=== PATIENT | female | born 1965 | race Caucasian/White ===

== ENCOUNTER 2019-10-24 12:21 | Outpatient (CLI) | payer OTHER, SELFPAY ==
--- NOTE | 2019-10-28 23:19 | WPDPFTINT ---
PFT Interpretation PFT Interpretation: DOS: 10/24/2019 REQUESTING: Marvin Santos PA-C REASON FOR TESTING: Cough, shortness of breath PULMONARY FUNCTION TESTS Spirometry: Normal FEV1, 99%. Normal FVC. Normal FEV1%, 77% predicted. No bronchodilator was given. Lung volumes: normal total lung capacity, normal residual volume, mild increase in airway resistance 153%. Diffusion: DLCO is normal 80%. Flow volume loop: Normal. IMPRESSION: Normal spirometry lung volumes and diffusion. Normal flow volume loop. Minimally elevated airway resistance which may be clinically significant. No bronchodilator was given. Maricarmen Painting MD
== END 2019-10-24 12:22 | disposition home or self-care (01) ==
PROVIDERS: PCP Internal Medicine; Visit Provider Physician Assistant
DX: R05 Cough (principal); R06.02 Shortness of breath
CPT/HCPCS: 94375; 94726; 94729

== ENCOUNTER 2019-10-30 08:09 | Outpatient (CLI) | payer OTHER, SELFPAY ==
--- NOTE | 2019-11-06 01:57 | SLEEP_ITS ---
Split Night Sleep Study DATE OF STUDY: 10/30/2019 REASON FOR THIS STUDY: Obstructive sleep apnea syndrome. HISTORY: This patient is a 54-year-old female, 66 inches tall, weighing 197 pounds with a body mass index of 31.8. She has horrible snoring, gasps for air at night, and her breathing scares her family. They stay awake because they are worried about her while sleeping. She never wakes up feeling refreshed. She previously had a home study, but she could not tolerate the mask or the machine. This problem happens every night. All of her siblings use CPAP. She occasionally gasps for breath at night and constantly is told by others that her breathing is abnormal at night. She rarely sweats excessively at night. She does not notice her heart pounding irregularly at night. She occasionally falls asleep during the day, occasionally involuntarily, but never while driving. She does fall asleep occasionally while as a passenger. She does not lose muscle tone with strong emotion. She does not have daytime difficulty due to excessive sleepiness. She does not feel paralyzed on waking or falling asleep. She frequently has vivid dreamlike scenes upon awakening or falling asleep. She is never afraid to go to sleep. She rarely has nightmares. She occasionally remembers her dreams. She frequently has racing thoughts. She rarely feels sad or depressed. Occasionally, she feels anxious. She rarely has muscular tension. She rarely notices parts of her body jerking. She occasionally kicks at night. She rarely has crawling and aching feelings in her legs. She occasionally has leg pain at night. There is no morning jaw pain and she does not grind her teeth. She is not bothered by pain during the day nor at night. She rarely wakes up feeling stiff in the morning. She does not wake up with sore achy muscles or spine pain. She has fatigue, memory problems, takes antacids. Normal bedtime is 10 p.m., falling asleep in less than 5 minutes, waking once at night for 5 minutes or less and will go to the bathroom. At times, she will turn on the television and then fall asleep again. She wakes up at 6:30 in the morning. She does wake up gasping for air, as her tells her to turn over. 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 She does take naps. A short nap may be refreshing. She is drowsy in the morning for an hour or longer. She feels better in the evening than the rest of the day. MEDICAL COMORBIDITIES: 1. Hypertension. 2. Gastroesophageal reflux disease. 3. Asthma. 4. Seasonal allergies. MEDICATIONS: 1. Flonase 2 sprays each nostril daily p.r.n. 2. Protonix 40 mg a day. 3. Triamterene/hydrochlorothiazide 37.5/25 one capsule daily as needed for edema. 4. Coreg 12.5 mg 1 b.i.d. 5. Alprazolam 0.5 mg p.r.n. anxiety. 6. ProAir HFA 90 mcg per puff to use p.r.n. shortness of breath. HABITS: Never smoked tobacco. Caffeine, 1 tea and 3 coffees daily. Alcohol occasionally. No recreational drugs. DESCRIPTION OF THE STUDY: On the [place] Sleepiness Scale, her score is 12. This was conducted as a split night nocturnal polysomnogram using the [employer] multiple channel system including EOG, EEG, submental EMG, EKG, nasal and oral airflow using thermistors and nasal pressure sensors, chest and abdominal belts, body position data, pulse oximetry, and video monitoring. The study was scored using [facility] guidelines. The duration of the diagnostic portion was 156 minutes. The sleep time was 139.5 minutes. Sleep efficiency was 89.1%. Sleep latency was 3.4 minutes, very short, consistent with hypersomnolence. REM latency was 134 minutes, prolonged. There were 10 awakenings and she spent 13.7 min
== END 2019-10-30 08:10 | disposition home or self-care (01) ==
LOC: ANHCSM 08:10
PROVIDERS: PCP Internal Medicine; Visit Provider Internal Medicine
DX: G47.33 Obstructive sleep apnea (adult) (pediatric) (principal)
CPT/HCPCS: 95811

== ENCOUNTER 2019-11-14 10:40 | Outpatient (CLI) | payer OTHER, SELFPAY ==
--- NOTE | ~2019-11-14 | XR_ITS ---
EXAMINATION: XR chest 2V EXAM DATE: 11/14/2019 11:03 INDICATION: Cough, wheezing. Hypertension. TECHNIQUE: Frontal and lateral projections of the chest obtained and reviewed. Comparison is made to prior examination from 01/27/2016. FINDINGS: The lungs are clear. There are no pleural effusions. The cardiomediastinal silhouette is within normal limits. There is no pneumothorax suspected. The bones and soft tissues are unremarkab le. IMPRESSION: Unremarkable chest x-ray exam. Reviewed, dictated and finalized at location A. TION MANAGER
== END 2019-11-14 10:41 | disposition home or self-care (01) ==
PROVIDERS: PCP Internal Medicine; Visit Provider Internal Medicine Critical Care Medicine
DX: R06.02 Shortness of breath (principal); R05 Cough; J45.909 Unspecified asthma, uncomplicated; I10 Essential (primary) hypertension; G47.30 Sleep apnea, unspecified
CPT/HCPCS: 71046

== ENCOUNTER 2021-02-04 10:52 | Outpatient (RCR) | payer OTHER, SELFPAY ==
[2021-02-04 11:10] VITALS: BMI 38.5
== END 2021-04-20 09:25 | disposition home or self-care (01) ==
LOC: ANHDMC 10:52
PROVIDERS: PCP Internal Medicine; Visit Provider Internal Medicine
DX: R73.9 Hyperglycemia, unspecified (principal); E78.00 Pure hypercholesterolemia, unspecified; Z71.3 Dietary counseling and surveillance
CPT/HCPCS: 97802

== ENCOUNTER 2021-04-08 11:53 | Inpatient (IN) | payer OTHER, SELFPAY ==
[2021-04-08] VITALS (19 sets, daily range): BP systolic 111–152; BP diastolic 67–100; PULSE 76–106; RESP 13–28; TEMP 36.6–36.8; O2SAT 94–100; BMI 38.0
--- NOTE | ~2021-04-08 | XR_ITS ---
EXAMINATION: XR chest 2V EXAM DATE: 04/08/2021 12:06 INDICATION: Midsternal chest pain for 3 days. TECHNIQUE: Frontal and lateral projections of the chest obtained and reviewed. Comparison is made to prior examination from 11/14/2019. FINDINGS: The lungs are clear. There are no pleural effusions. The cardiomediastinal silhouette is within normal limits. There is no pneumothorax suspected. The bones and soft tissues are unremarkab le. IMPRESSION: No acute cardiopulmonary findings. Reviewed, dictated and finalized at location A.
--- NOTE | 2021-04-08 11:55 | ECG_ITS ---
Measurements Intervals [place] Rate: 79 P: 18 CO: 177 QRS: 27 QRSD: 90 T: 51 QT: 395 QTc: 455 Interpretive Statements SINUS RHYTHM INCOMPLETE RIGHT BUNDLE BRANCH BLOCK LOW QRS VOLTAGE IN PRECORDIAL LEADS SUBTLE ST ELEVATION IN HIGH LATERAL LEADS- CONSIDER ACUTE INFARCT WITH RECIPROCAL ST DEPRESSION IN INFERIOR LEADS ABNORMAL ECG Electronically Signed On 04-08-2021 13:19:58 CDT by Junior Singh D.O.
[2021-04-08 12:42] LABS: Basophils Absolute Auto 0.1 K/mm3 (0.0-0.1); Basophils Percent Auto 0.6 % (0.2-1.2); Eosinophils Absolute Auto 0.2 K/mm3 (0-0.3); Eosinophils Percent Auto 1.3 % (0-4.4); Hemoglobin 14.4 g/dL (12.0-15.0); Immature Granulocyte Absolute 0.08 K/mm3 (0.00-0.031); Immature Granulocyte Percent A 0.6 % (0-0.5); Lymphocytes Absolute Auto 2.45 K/mm3 (0.9-3.2); Lymphocytes Percent Auto 19.7 % (18.3-44.2); Mean Corpuscular HGB Conc 33.5 g/dl (32-36); Mean Corpuscular Hemoglobin 29.1 pg (26-34); Mean Platelet Volume 10.4 fl (7.4-10.4); Monocytes Absolute Auto 0.8 K/mm3 (0.1-0.6); Monocytes Percent Auto 6.1 % (2.6-8.5); Neutrophils Absolute Auto 8.9 K/mm3 (1.3-6.7); Neutrophils Percent Auto 71.7 % (45.5-73.1); Platelet Count Result 283 k/mm3 (150-375); Red Blood Count 4.94 M/mm3 (4.2-5.4); Red Cell Distribution Width 12.8 % (11.5-14.5); White Blood Count 12.4 K/mm3 (4.5-10.0)
[2021-04-08 12:55] LABS: Anion Gap 8 mmol/L (8-16); Blood Urea Nitrogen 14 mg/dL (7-17); Calcium 9.6 mg/dL (8.4-10.2); Carbon Dioxide 25 mmol/L (22-30); Chloride 103 mmol/L (98-107); Estimated CRCL calculation 95 ml/min; Estimated Glomerular Filt Rate > 60; Glucose 108 mg/dL (65-105); Potassium 3.9 mmol/L (3.4-5.0); Sodium 136 mmol/L (137-145)
--- NOTE | 2021-04-08 13:05 | ED.CHESTPAIN ---
HPI - Chest Pain General Chief Complaint: Chest Pain Stated Complaint: CP X3D Time Seen by Provider: 04/08/21 13:00 Source: RN notes reviewed History of Present Illness HPI narrative: Patient presents to emergency department from home for chest pain. Patient states that she has been having midsternal chest pain for the past 3 days that is described as a pressure the patient waxes and wanes in intensity and is associated with shortness of breath she states the pain is improved with taking aspirin and Tums she denies any fevers or chills nausea vomiting or any other symptoms patient states the pain is improved at this time with only mild pain between her shoulder blades Related Data Home Medications Medication Instructions Recorded Confirmed diphenhydramine 25 1 tablet PO Q6H PRN 11/27/19 04/08/21 mg-acetaminophen 500 mg tablet zolpidem 5 mg PO HS PRN 04/08/21 04/08/21 Allergies Allergy/AdvReac Type Severity Reaction Status Date / Time No Known Allergies Allergy Verified 04/08/21 13:24 Review of Systems Review of Systems: Narrative: Gen.: Denies fevers or chills ENT: Denies congestion Respiratory: Reports shortness of breath CV: See HPI GI: Denies abdominal pain nausea, emesis or diarrhea Musculoskeletal: Denies back pain or muscle pain Neuro: Denies numbness, tingling, weakness or focal weakness Skin: Denies rash Except as documented, all other systems reviewed and negative [facility] Past Medical History Medical History (Updated 04/08/21 @ 17:05 by Patel Cárdenas DO) Acute bronchitis AK (actinic keratosis) Allergic rhinitis, unspecified Body mass index (bmi) 37.0-37.9, adult (07/11/19) Bronchitis Chest pain Colon cancer screening Cough Dietary counseling and surveillance (08/04/15) Essential (primary) hypertension Gastro-esophageal reflux disease without esophagitis Hyperglycemia Leg swelling Other fatigue Pure hypercholesterolemia Screening for osteoporosis Skin neoplasm Sleep apnea in adult Wheezing Family History Family History Mother Patient's mother is Father Patient's father is Social History Social History Smoking status: Never smoker Second hand tobacco smoke exposure: No Alcohol intake: never Substance use: unknown Gender identity (if verbalized by the patient): Female Spiritual care concerns: No Exam Narrative: Exam Narrative: APPEARANCE: No acute distress, nontoxic, resting in bed EYES: EOMI HEENT: Normocephalic, atraumatic, OMM RESPIRATORY: No respiratory distress Clear to auscultation bilaterally with no rhonchi wheezing or rales. CARDIOVASCULAR: Regular rate and rhythm without murmurs rubs or gallops. ABDOMINAL: Soft, nondistended, mild tenderness in epigastric and right upper quadrant letter quadrant no rebound or guarding MUSCULOSKELETAl: Moves all extremities. No clubbing, cyanosis or edema. NEURO: Awake and alert. Following commands, speech normal, no focal deficits SKIN:: Warm, dry. No rashes lesions or abrasions PSYCHIATRIC: Normal affect/mood, Course Course Emergency Course: Dr. Thomason currently in the emergency department to evaluate the patient Dr. Thomason plans to take patient to go the [facility] at this time Discussed with patient and family results of workup and diagnosis. Discussed need for admission. Patient and family understand and agree to current treatment plan Vital Signs Vital signs: Vital Signs Temperature 97.9 F 04/08/21 12:16 Pulse Rate 80 04/08/21 12:16 Respiratory Rate 14 04/08/21 12:16 Blood Pressure 152/100 H 04/08/21 12:16 Pulse Oximetry 99 04/08/21 12:16 Temperature 98.2 F 04/08/21 13:56 Pulse Rate 79 04/08/21 16:29 Respiratory Rate 21 H 04/08/21 16:29 Blood Pressure 123/67 04/08/21 16:29 Pulse Oximetry 98 04/08/21 16:29 MDM - Ches
--- NOTE | 2021-04-08 13:07 | ECG_ITS ---
Measurements Intervals [place] Rate: 80 P: 31 MA: 177 QRS: 34 QRSD: 89 T: 49 QT: 403 QTc: 467 Interpretive Statements SINUS RHYTHM INCOMPLETE RIGHT BUNDLE BRANCH BLOCK LOW QRS VOLTAGE IN PRECORDIAL LEADS SUBTLE ST ELEVATION IN HIGH LATERAL LEADS- CONSIDER ACUTE INFARCT WITH RECIPROCAL ST DEPRESSION IN INFERIOR LEADS ABNORMAL ECG Electronically Signed On 04-08-2021 13:21:09 CDT by Junior Singh D.O.
[2021-04-08 13:15] LABS: INR 0.9
[2021-04-08 13:17] LABS: Partial Thromboplastin Time 24.5 SECONDS (22.3-36.8)
[2021-04-08] MEDS: ASPIRIN 81 MG CHEWABLE TABLET 324 MG PO (13:26)
--- NOTE | 2021-04-08 13:40 | PM.IMHP ---
H&P: HPI History of Present Illness Date/Time: 04/08/21 13:40 Chief Complaint: Chest pain Narrative: this is a 55-year-old woman without any previous known history of coronary artery disease. She began to experience chest pain intermittently in a waxing waning fashion since Tuesday of this week. The symptoms were persistent and so this afternoon she decided to come into the emergency room for evaluation. In the ED her electrocardiogram shows some very subtle ST elevation in leads 1 and aVL and some very subtle nonspecific ST segment changes elsewhere. Her troponin level is found to be 4.9. She has been given some aspirin in the emergency room otherwise has received no other specific treatment. Because of her symptoms, ECG findings and troponin I recommended emergency angiography. Past medical history is only remarkable for hypertension. The patient is obese with BMI of 38.8. Review of Systems Constitutional: Constitutional: Reports no additional constitutional complaints Eyes: Eyes: Reports no additional eye complaints ENT: Reports system reviewed and no additional complaints, except as documented Cardiovascular: Cardiovascular: Reports as per HPI Respiratory: Respiratory: Reports no additional respiratory complaints Gastrointestinal: Gastrointestinal: Reports no additional gastrointestinal complaints Musculoskeletal: Musculoskeletal: Reports no additional musculoskeletal complaints Integumentary/Breasts: Skin/Breast: Reports system reviewed and no additional complaints, except as docu Neurologic: Reports system reviewed and no additional complaints, except as documented PMFSH Past Medical History Medical History Acute bronchitis AK (actinic keratosis) Allergic rhinitis, unspecified Body mass index (bmi) 37.0-37.9, adult (07/11/19) Bronchitis Chest pain Colon cancer screening Cough Dietary counseling and surveillance (08/04/15) Essential (primary) hypertension Gastro-esophageal reflux disease without esophagitis Hyperglycemia Leg swelling Other fatigue Pure hypercholesterolemia Screening for osteoporosis Skin neoplasm Sleep apnea in adult Wheezing Family History Family History Mother Patient's mother is Father Patient's father is Social History Social History Smoking status: Never smoker Second hand tobacco smoke exposure: No Alcohol intake: current Substance use: never Spiritual care concerns: No Meds Home Medications and Allergies Home Medications Medication Instructions Recorded Confirmed Type budesonide-formoterol HFA 160 2 puff INHALATION Q12H PRN 30 Days 11/14/19 04/02/21 Rx mcg-4.5 mcg/actuation aerosol #10.2 gm inhaler inhalational spacing device #1 each 11/14/19 04/02/21 Rx diphenhydramine 25 1 tablet PO Q6H PRN 11/27/19 04/02/21 History mg-acetaminophen 500 mg tablet albuterol sulfate 90 mcg/actuation 2 puff INHALATION Q4-6H PRN #8.5 gm 02/19/20 04/02/21 Rx aerosol inhaler triamterene 37.5 1 tablet PO QAM #90 tablet 09/06/20 04/02/21 Rx mg-hydrochlorothiazide 25 mg tablet alprazolam 0.5 mg tablet 0.5 mg PO .hs PRN #60 tablet 12/31/20 04/02/21 Rx zolpidem 5 mg tablet 5 mg PO .hs PRN #10 tablet 12/31/20 04/02/21 Rx metoprolol tartrate 25 mg tablet 25 mg PO Q12H #60 tablet 01/19/21 04/02/21 Rx pantoprazole 40 mg tablet,delayed 40 mg PO QAM #90 tablet 03/02/21 04/02/21 Rx release betamethasone valerate 0.1 % 1 applic TOPICAL BID PRN #45 g 03/31/21 03/31/21 Rx topical cream cephalexin 500 mg tablet 500 mg PO Q12H #20 tablet 03/31/21 03/31/21 Rx Allergies Allergy/AdvReac Type Severity Reaction Status Date / Time No Known Allergies Allergy Verified 04/08/21 13:24 Vital Signs Vital Signs - 24 hr 04/08/21 12:16 Temperature 36.6 C Pulse
--- NOTE | 2021-04-08 13:49 | PC.NURSE ---
chemistry, aaron, added hepatic, lip 13:49
--- NOTE | 2021-04-08 14:43 | ECG_ITS ---
Measurements Intervals [place] Rate: 80 P: 8 MA: 195 QRS: 89 QRSD: 88 T: 66 QT: 395 QTc: 457 Interpretive Statements SINUS RHYTHM INCOMPLETE RIGHT BUNDLE BRANCH BLOCK LOW QRS VOLTAGE IN PRECORDIAL LEADS SUBTLE ST ELEVATION IN HIGH LATERAL LEADS- CONSIDER RECENT ACUTE INFARCT WITH MILD ST DEPRESSION IN INFERIOR LEADS ABNORMAL ECG Electronically Signed On 04-08-2021 21:28:47 CDT by Junior Singh D.O.
--- NOTE | 2021-04-08 14:48 | WPDCARDPROC ---
Cardiac Cath Procedure Note Date of procedure:: 04/08/21 Performing physician:: Jarrett Thomason MD Indication:: acute myocardial infarction Brief clinical history:: this is a 55-year-old woman with history of hypertension and no previous history of overt coronary disease. She has been having chest pain for about 48 hours at this time lack Hwang and waning but essentially continuous. She came to the emergency room today where her electrocardiogram shows some subtle ST elevation in leads 1 and aVL as well as mild ST depression in the lateral leads. Troponin level measured 4.9 in the emergency room. In this setting emergency angiography has been recommended Procedure Procedure performed:: emergency coronary angiography emergency PCI(CARROL) to the diagonal branch of the LAD left ventriculography Sedation/Medication given:: fentanyl 50 mg Versed 2 mg case start time 1408 case end time 2:38 p.m. ns. Access site:: right femoral artery Estimated blood loss:: 15-20 cc Procedure note:: patient was brought to the cardiac catheterization lab in the emergent setting described above. The right femoral triangle was prepped and draped in the usual fashion. Anesthesia was provided with 1% lidocaine infiltrated locally. Using the modified Seldinger technique the right femoral artery was punctured and a 5 Haitian vascular sheath was placed. I then used 5 Haitian JR4 and FL4 catheters to engage and inject the left and right coronary arteries in multiple Projections. The cineangiograms were reviewed and preparations were made for PCI of the diagonal branch of the LAD. At this point the 5 Haitian sheath was exchanged over guidewire for a 6 Haitian sheath. Patient was systemically anticoagulated with bolus and infusion of Angiomax and received oral Brilinta loading dose 180 mg. Following this PCI of the diagonal branch of the LAD was carried out as detailed below. Following PCI a 5 Haitian angled pigtail catheter was used to measure left-sided hemodynamics and injected LV g in the CORADO projection. The case was then terminated the sheath was sutured into position the patient taken to ICU for post PA PCI recovery. 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 Findings:: Hemodynamics: Central aortic pressure is 126 76 left ventricle 126 over 8 end-diastolic pressure 18 there is no gradient on pullback across the aortic valve. Left ventricle: The LV is normal in size. The mid anterior wall is moderately hypodynamic the remainder of the LV contracts well the global ejection fraction is 50-55% by visual estimation. The left main coronary artery is large in caliber and widely patent the left anterior descending is a moderate caliber artery extending down to the apex. There is no significant disease in the LAD itself. There is 100% occlusion of the major diagonal branch of the LAD about 10 mm from its origin from the LAD trunk itself. The circumflex is a large caliber vessel giving rise to the marginal branches the circumflex system is smooth and angiographically free of disease. Right coronary artery is moderate caliber dominant to the posterior circulation. The RCA has mild atherosclerosis in the 2nd portion and some tortuosity in this area. There is about 40-50% stenosis. intervention: The left coronary was engaged using a 6 Haitian CLS 3.5 guiding catheter. I used a 0.014 BMW coronary guidewire to probe the occluded diagonal branch and across the occlusion into the distal aspect of that vessel. The wire restored JEFF 1 flow in the vessel and the occlusion area proximally could then be identified. I pre-dilated this area using a 2.5 x 20 mm emerge balloon restoring excellent flow into the vessel and following this stented this area using a 2.5 x 18 mm Orsiro drug-eluting stent deployed at nominal pressure with an excellent angiographic result no residual stenosis no perforation disruption or di
--- NOTE | 2021-04-08 15:52 | ADMGEN ---
This patient, Edna Hardy, was admitted to Intensive Care Unit-1 at 1310. Patient/family oriented to hospital policies and general routines including ID bracelet, bed and alarms, visiting hours, pain management, procedures, bathroom and other care routines, personal items, smoking policy, room service/diet, and visiting hours. Information on how to activate the Rapid Response Team has been discussed. Patient/Family are encouraged to report perceived risks to care and to ask questions if they do not understand what they are told or what they should do.
[2021-04-08] MEDS: SODIUM CHLORIDE 0.9% IV 1,000 ML 125 ML IV CONT (16:17)
[2021-04-08] MEDS: NEOMYCIN/POLYMYXIN/BACITRACIN OINTMENT PACKET 1 PACKET (17:38)
[2021-04-08 18:26] LABS: Alanine Aminotransferase 29 U/L (4-35); Albumin Level 4.6 g/dL (3.5-5.1); Alkaline Phosphatase 103 U/L (38-126); Aspartate Amino Transferase 80 U/L (14-36); Bilirubin,Total 0.5 mg/dL (0.2-1.3); Lipase 62 U/L (23-300)
[2021-04-08] MEDS: ALPRAZolam (*CRX) 0.5 MG TABLET PO (21:14)
[2021-04-09] VITALS (14 sets, daily range): BP systolic 109–141; BP diastolic 60–112; PULSE 84–111; RESP 17–24; TEMP 36.4–37.1; O2SAT 94–98
--- NOTE | 2021-04-09 | ECHO_ITS ---
Patient Info Name: Edna Hardy Age: 55 years : 1965 Gender: Female Ht: 66 in Wt: 223 lbs BSA: 2.21 m2 HR: 85 bpm BP: 145 / 96 mmHg Heart Rhythm: Sinus Rhythm Technical Quality: Fair Exam Date: 04/09/2021 1:11 PM Exam Location: [facility] Patient Status: Inpatient Admit Date: 04/08/2021 Staff Ordering Physician: Tameka Jeff Power Operator: Lee Ann Young RDCS Attending Provider: Jarrett Thomason MD Referring Physician: Randee BHATT; Exam Type: CA echo doppler color flow Study Info Indications I21.4 - Non-ST elevation (NSTEMI) myocardial infarction Complete two-dimensional, color flow and Doppler transthoracic echocardiogram is performed. Summary 1. Complete two-dimensional, color flow and Doppler transthoracic echocardiogram is performed. 2. Technically difficult study with limited views. Regional wall motion assessment limited due to poor endomyocardial border definition, although no clear wall motion abnormalities appreciated. 3. Left ventricular systolic function is normal, estimated at 60-65%. 4. Left ventricular chamber dimension is mildly enlarged. 5. There is small circumferential pericardial effusion with fibrinous material within the pericardial space. 6. No tamponade physiology by mitral or tricuspid inflow velocity. Left Ventricle Left ventricular chamber dimension is mildly enlarged. Left ventricular systolic function is normal, estimated at 60-65%. There is no increased left ventricular wall thickness. The left ventricular diastolic function is grade I diastolic dysfunction. Technically difficult study with limited views. Regional wall motion assessment limited due to poor endomyocardial border definition, although no clear wall motion abnormalities appreciated. Right Ventricle Right ventricular chamber dimension is normal. Right ventricular systolic function is normal. Left Atria Left atrial chamber dimension is normal. Right Atria Right atrial chamber dimension is normal. Aortic Valve The aortic valve is not well visualized. There is no aortic valve stenosis. There is no aortic valve regurgitation. Pulmonic Valve The pulmonic valve is not well visualized. Mitral Valve The mitral valve has normal leaflets. There is no mitral valve regurgitation. The mitral valve annulus is mildly calcified. Tricuspid Valve The tricuspid valve leaflets are normal. There is trace tricuspid valve regurgitation. No pulmonary hypertension, estimated pulmonary arterial systolic pressure is 24 mmHg. Pericardium/Pleural The pericardium appears normal. There is small circumferential pericardial effusion with fibrinous material within the pericardial space. No tamponade physiology by mitral or tricuspid inflow velocity. Aorta The aortic root size at the sinus of Valsalva is normal. The prox ascending aorta size is normal. Left Ventricular Outflow Tract Name Value Normal LVOT 2D LVOT Diameter 2.1 cm LVOT Doppler LVOT Peak Gradient 5 mmHg LVOT Mean Gradient 2 mmHg LVOT VTI 18 cm
--- NOTE | 2021-04-09 05:11 | ECG_ITS ---
Measurements Intervals [place] Rate: 103 P: 22 CA: 160 QRS: 88 QRSD: 84 T: 95 QT: 380 QTc: 500 Interpretive Statements SINUS TACHYCARDIA POSSIBLE LEFT ATRIAL ENLARGEMENT INCOMPLETE RIGHT BUNDLE BRANCH BLOCK LOW QRS VOLTAGE IN PRECORDIAL LEADS HIGH LATERAL INFARCT- PROBABLY RECENT BASELINE ARTIFACT- I, III, AVL ABNORMAL ECG Electronically Signed On 04-09-2021 8:51:06 CDT by Junior Singh D.O.
[2021-04-09] MEDS: TICAGRELOR 90 MG TABLET PO ×2 (09:08→20:17)
[2021-04-09] MEDS: LOSARTAN POTASSIUM 25 MG TABLET PO (09:09)
[2021-04-09] MEDS: METOPROLOL SUCCINATE EXT REL 25 MG TABCR PO (09:09)
[2021-04-09] MEDS: ROSUVASTATIN 10 MG TABLET 20 MG PO (09:09)
[2021-04-09] MEDS: ASPIRIN 81 MG CHEWABLE TABLET PO (09:10)
--- NOTE | 2021-04-09 10:54 | PC.NURSE ---
Card[facility] Services flyer was given to patient.
--- NOTE | 2021-04-09 12:05 | PM.PNCARD ---
Progress Note: A&P Assessment and Plan (1) Non-ST elevation (NSTEMI) myocardial infarction: Code(s): I21.4 - Non-ST elevation (NSTEMI) myocardial infarction <TIARA Larsen - Last Filed: 04/09/21 14:04> Status: Acute <TIARA Larsen - Last Filed: 04/09/21 14:04> Assessment and Plan: ED presentation with c/o chest pain x48 hours. EKG in the ED showed subtle ST elevations in leads 1 and aVL. Troponin was found to be 4.9 in the ED and peaked at 12.9. She was taken to the cardiac labor relations representative and coronary angiography revealed: 1. Coronary artery disease presenting with acute myocardial infarction, late in the course of PR at with 100% occlusion of the major diagonal branch of the LAD. 2. Modest 40-50% stenosis with some tortuosity in the mid RCA which is non flow-limiting disease. 3. Mild LV systolic dysfunction with mid anterior hypokinesia due to occlusion of the diagonal 4. successful revascularization including PTCA and stenting of the diagonal branch of the LAD with excellent angiographic result no residual stenosis no complications and oriental orthodox of JEFF 3 flow in the diagonal branch. - She has been started on aspirin, Brilinta, rosuvastatin, losartan, metoprolol. - Echocardiogram pending <TIARA Larsen - Last Filed: 04/09/21 14:04> (2) Essential (primary) hypertension: Code(s): I10 - Essential (primary) hypertension <TIARA Larsen - Last Filed: 04/09/21 14:04> Status: Acute <TIARA Larsen - Last Filed: 04/09/21 14:04> Assessment and Plan: At goal. Continue losartan, metoprolol. <TIARA Larsen - Last Filed: 04/09/21 14:04> (3) EUSEBIA (obstructive sleep apnea): Code(s): G47.33 - Obstructive sleep apnea (adult) (pediatric) <TIARA Larsen - Last Filed: 04/09/21 14:04> Status: Acute <TIARA Lrasen - Last Filed: 04/09/21 14:04> Assessment and Plan: On CPAP as outpatient. <TIARA Larsen - Last Filed: 04/09/21 14:04> Additional Plan I have seen and examined the patient and agree with the assessment and plan of the nurse practitioner. She had occluded diagonal branch status post stenting. Doing well. Continue aspirin and Brilinta. Beta-caterina. High-intensity statin <Haja Monaco MD - Last Filed: 04/13/21 16:02> Subjective Date/time seen: 04/09/21 12:05 Cardiology follow up for NSTEMI Date of service 04/09/2021: She is feeling well today - denies any chest pain, shortness of breath. She's been ambulating in her room without difficulty. No arrhythmias noted on telemetry overnight. <TIARA Larsen - Last Filed: 04/09/21 14:04> Review of Systems Review of Systems: All systems reviewed & are unremarkable except as noted in HPI and below <TIARA Larsen - Last Filed: 04/09/21 14:04> Constitutional: Constitutional: Reports no additional constitutional complaints, Denies fatigue, Denies lethargy and Denies weakness <TIARA Larsen - Last Filed: 04/09/21 14:04> Eyes: Eyes: Reports no additional eye complaints and Denies blurry vision <TIARA Larsen - Last Filed: 04/09/21 14:04> ENT: Reports system reviewed and no additional complaints, except as documented and Reports Normal hearing present <TIARA Larsen - Last Filed: 04/09/21 14:04> Cardiovascular: Cardiovascular: Reports as per HPI, Denies chest pain, Denies pedal edema and Denies leg edema <TIARA Larsen - Last Filed: 04/09/21 14:04> Respiratory: Respiratory: Reports no additional respiratory complaints, Denies dyspnea and Denies dyspnea on exertion <TIARA Larsen - Last Filed: 04/09/21 14:04> Gastrointestinal: Gastrointestinal: Reports no additional gastrointestinal complaints, Denies abdominal pain, Denies constipation and Denies diarrhea <Tameka Jeff APN-C - Last Filed: 04/09/21 14:04> Genitourinary: Genitourinary
[2021-04-09] MEDS: ALPRAZolam (*CRX) 0.5 MG TABLET PO (22:25)
[2021-04-10] VITALS (8 sets, daily range): BP systolic 117–121; BP diastolic 74–82; PULSE 79–95; RESP 23–25; TEMP 36.6–36.9; O2SAT 94–95
[2021-04-10] MEDS: ROSUVASTATIN 10 MG TABLET 20 MG PO (08:04)
[2021-04-10] MEDS: METOPROLOL SUCCINATE EXT REL 25 MG TABCR PO (08:05)
[2021-04-10] MEDS: LOSARTAN POTASSIUM 25 MG TABLET PO (08:05)
[2021-04-10] MEDS: TICAGRELOR 90 MG TABLET PO (08:05)
--- NOTE | 2021-04-10 08:38 | PM.DS ---
DS: Admitting Diagnosis Admitting Diagnosis Admitting Diagnosis: Chest pain DS: Discharge Diagnosis Discharge Diagnosis (1) Non-ST elevation (NSTEMI) myocardial infarction: Code(s): I21.4 - Non-ST elevation (NSTEMI) myocardial infarction Status: Acute Assessment and Plan: ED presentation with c/o chest pain x48 hours. EKG in the ED showed subtle ST elevations in leads 1 and aVL. Troponin was found to be 4.9 in the ED and peaked at 12.9. She was taken to the cardiac laborer poultry hatchery and coronary angiography revealed: 1. Coronary artery disease presenting with acute myocardial infarction, late in the course of [place] at with 100% occlusion of the major diagonal branch of the LAD. 2. Modest 40-50% stenosis with some tortuosity in the mid RCA which is non flow-limiting disease. 3. Mild LV systolic dysfunction with mid anterior hypokinesia due to occlusion of the diagonal 4. successful revascularization including PTCA and stenting of the diagonal branch of the LAD with excellent angiographic result no residual stenosis no complications and anabaptist of JEFF 3 flow in the diagonal branch. - She has been started on aspirin, Brilinta, rosuvastatin, losartan, metoprolol. - Echocardiogram pending (2) Hypertension: Code(s): I10 - Essential (primary) hypertension Status: Acute Assessment and Plan: At goal. Continue Losartan, metoprolol. (3) EUSEBIA (obstructive sleep apnea): Code(s): G47.33 - Obstructive sleep apnea (adult) (pediatric) Status: Acute Assessment and Plan: On CPAP. Discussed importance of compliance with CPAP (4) BMI 37.0-37.9, adult: Code(s): Z68.37 - Body mass index [BMI] 37.0-37.9, adult Status: Acute Assessment and Plan: Talked extensively about importance of heart healthy diet, exercise. She says she has a publishing agent who she sees and will follow up with her for a nutrition plan going forward. She will reduce her alcohol intake. Discussed that her goal for aerobic exercise when she is released for full activity is 150 minutes per week. DS: Summary Hospital Course Reason for hospitalization: Chest pain Hospital Course: 55 year old female with a medical history of hypertension and EUSEBIA who presented to the emergency department with chest pain. She had been having chest pain for about 3 days before presenting to the hospital. EKG in the ED showed subtle ST elevations in leads 1 and aVL. Troponin was found to be 4.9 in the ED and peaked at 12.9. She was taken to the cardiac laborer poultry hatchery and coronary angiography revealed: 1. Coronary artery disease presenting with acute myocardial infarction, late in the course of OR at with 100% occlusion of the major diagonal branch of the LAD. 2. Modest 40-50% stenosis with some tortuosity in the mid RCA which is non flow-limiting disease. 3. Mild LV systolic dysfunction with mid anterior hypokinesia due to occlusion of the diagonal 4. successful revascularization including PTCA and stenting of the diagonal branch of the LAD with excellent angiographic result no residual stenosis no complications and anabaptist of JEFF 3 flow in the diagonal branch. She did not experience any periprocedural complications and was taken to the ICU in stable condition. She was initiated on medical therapy with aspirin, brilinta, losartan, metoprolol, and rosuvastatin. Her hospital course has been uncomplicated and she has progressed as expected. Today, she is stable and appropriate for discharge home. Status at Discharge Functional status at discharge: independent ambulation Overall status at discharge: patient is back to baseline Time Spent with Patient Time attestation: Total time spent providing and/or coordinating discharge services: Time spent: Greater than 30 minutes Exam Const: General: comfortable and no acute distress; No confusion Orientation/consciousness: No confusion Other: HENMT: Head: normal to inspection Mo
[2021-04-10] MEDS: ASPIRIN 81 MG CHEWABLE TABLET PO (12:22)
== END 2021-04-10 14:00 | disposition home or self-care (01) | DRG 247 ==
LOC: ANHED 13:41 → ANHIMU 14:29 → ANHICU 16:31
PROVIDERS: Emergency Medicine; Admitting Provider Specialist; Emergency Provider Emergency Medicine; PCP Internal Medicine; Visit Provider Nurse Practitioner
PROC: 4A023N7 Measurement of Cardiac Sampling and Pressure, Left Heart, Percutaneous Approach (ICD-10-PCS; CPT 93452; principal; 2021-04-08 14:00)
PROC: 027034Z Dilation of Coronary Artery, One Artery with Drug-eluting Intraluminal Device, Percutaneous Approach (ICD-10-PCS; 2021-04-08 14:00)
DX: I21.4 Non-ST elevation (NSTEMI) myocardial infarction (principal); I10 Essential (primary) hypertension; I25.10 Atherosclerotic heart disease of native coronary artery without angina pectoris; E66.9 Obesity, unspecified; Z68.38 Body mass index [BMI] 38.0-38.9, adult; G47.33 Obstructive sleep apnea (adult) (pediatric); Z79.899 Other long term (current) drug therapy
CPT/HCPCS: 36415; 71046; 80048; 80076; 83690; 84484; 85025; 85610; 85730; 93005; 93306; 93458; 94660; 99291; A9270; C1725; C1769; C1874; C1887; C1894; C9600; J0461; J0583; J2250; J3010; J7030

== ENCOUNTER 2021-08-26 16:30 | Outpatient (RCR) | payer OTHER, SELFPAY ==
--- NOTE | 2021-06-10 09:07 | PCCPR ---
Absent tonight, in hospital.
== END 2021-08-26 19:30 | disposition home or self-care (01) ==
LOC: ANHCPREHAB 16:30
PROVIDERS: PCP Internal Medicine; Visit Provider Specialist
DX: I25.2 Old myocardial infarction (principal)
CPT/HCPCS: 93798

== ENCOUNTER → 2022-05-28 09:54 | Outpatient (CLI) | payer OTHER, SELFPAY ==
[2022-05-28 11:35] LABS: SARS-CoV-2 RNA PCR Positive
== END ==
PROVIDERS: PCP Internal Medicine; Visit Provider Internal Medicine
DX: U07.1 COVID-19 (principal)
CPT/HCPCS: C9803; U0003; U0005

== ENCOUNTER 2023-01-04 01:10 | Day surgery (SDC) | payer OTHER, SELFPAY ==
[2022-12-22 11:14] VITALS: BMI 38.9
[2023-01-04 06:23] VITALS: BP 151/91; PULSE 94; RESP 18; TEMP 36.6; O2SAT 96
[2023-01-04] MEDS: LACTATED RINGERS 1,000 ML 150 ML IV CONT (06:33)
--- NOTE | 2023-01-04 07:04 | WPDANESEPPF ---
Anes - Initial Pre Proc Eval Procedure: Operation Date: 01/04/23 07:30 Proposed Procedures p Screening Colonoscopy - Chano Perez MD Date/Time: 01/04/23 07:04 Surgeon: Chano Perez MD Pre Op Diagnosis: neoplasm screening Patient Data Age: 57 Gender: F Height: 1.7 m Weight: 115.4 kg Last Vital Signs Temp 36.6 C 01/04/23 06:23 Pulse 94 01/04/23 06:23 Resp 18 01/04/23 06:23 BP 151/91 H 01/04/23 06:23 Pulse Ox 96 01/04/23 06:23 O2 Del Method Room Air 01/04/23 06:23 Allergies Allergy/AdvReac Type Severity Reaction Status Date / Time No Known Allergies Allergy Verified 01/04/23 06:20 Home Medications Medication Instructions Recorded Confirmed Type inhalational spacing device #1 ea 11/14/19 01/04/23 Rx (Aerochamber MV spacer) diphenhydramine 25 1 tablet PO Q6H PRN Allergy 11/27/19 01/04/23 History mg-acetaminophen 500 mg tablet Symptoms (Tylenol PM Extra Strength) albuterol sulfate 90 mcg/actuation 2 puff inhalation Q4-6H PRN 02/19/20 01/04/23 Rx aerosol inhaler shortness of breath or wheezing #8.5 grams aspirin 81 mg chewable tablet 81 mg PO DAILY@0800 #30 tabs 04/10/21 01/04/23 Rx (Children's Aspirin) losartan 25 mg tablet 25 mg PO DAILY 30 days #30 tabs 04/10/21 01/04/23 Rx metoprolol succinate 25 mg 25 mg PO QAM 30 days #30 tabs 04/10/21 01/04/23 Rx tablet,extended release 24 hr (Toprol XL) furosemide 20 mg tablet (Lasix) 20 mg PO DAILY 05/22/21 01/04/23 History budesonide-formoterol HFA 160 2 puff inhalation Q12H PRN 11/25/21 01/04/23 Rx mcg-4.5 mcg/actuation aerosol shortness of breath or wheezing or inhaler (Symbicort) coughing 30 days #10.2 grams fluticasone propionate 50 2 spray intranasal DAILY PRN nasal 07/27/22 01/04/23 Rx mcg/actuation nasal congestion #15.8 mL spray,suspension alprazolam 0.5 mg tablet 0.5 mg PO HS PRN sleep #60 tabs 11/30/22 01/04/23 Rx pantoprazole 40 mg tablet,delayed 40 mg PO QAM #90 tabs 12/07/22 01/04/23 Rx release diphenoxylate-atropine 2.5 1 tablet PO QID PRN diarrhea #15 12/22/22 01/04/23 Rx mg-0.025 mg tablet (Lomotil) tabs montelukast 10 mg tablet 10 mg PO DAILY PRN Allergic 12/22/22 01/04/23 History Symptoms Patient hx anesthesia problems: none Family hx anesthesia problems: none Results Review: All pre-operative results and documents have been reviewed as part of the pre-operative evaluation. [facility] Past Medical History Medical History (Updated 01/04/23 @ 07:06 by Maurisio Morocho MD) Acute bronchitis AK (actinic keratosis) Allergic rhinitis, unspecified Body mass index (bmi) 37.0-37.9, adult (07/11/19) Bronchitis CAD (coronary artery disease) Chest pain Colon cancer screening Cough Dietary counseling and surveillance (08/04/15) Essential (primary) hypertension Gastro-esophageal reflux disease without esophagitis Hyperglycemia Hypertension Leg swelling Non-ST elevation (NSTEMI) myocardial infarction EUSEBIA (obstructive sleep apnea) Other fatigue Pure hypercholesterolemia Screening for osteoporosis Skin neoplasm Sleep apnea in adult Wheezing Surgical History Surgical History (Updated 01/04/23 @ 07:06 by Maurisio Morocho MD) History of heart artery stent Family History Family History (Updated 11/30/22 @ 10:03 by Maryuri Angulo MA) Mother Patient's mother is Father Patient's father is Heart disease Heart attack Sibling Heart disease Heart attack Diabetes mellitus Grandparent , maternal grandfather Diabetes mellitus Social History Social History Smoking status: Never smoker Second hand tobacco smoke exposure: No Alcohol intake: current Drinks per week: 3 Substance use: unknown Lack of Transportation: No Lack of Food: Never True Current Housing: I Have Housing Concerned About Future Housing: No Difficulty Paying Gas/[place]
--- NOTE | 2023-01-04 07:25 | PM.HPGS ---
History of Present Illness History of Present Illness Consent: Risks, benefits, and alternatives have been discussed and questions answered. Patient agrees to proceed with procedure. Chief complaint: neoplasm screening Narrative: Edna Hardy is a 57 year old female Presents for screening colonoscopy. Patient's current weight appetite and bowel movements are normal. Patient denies abdominal pain. She has had no bleeding. Family history noncontributory. Patient reports no polyps were found previous endoscopy. Review of Systems Review of Systems: Review of systems noncontributory. [facility] Past Medical History Medical History (Updated 01/04/23 @ 07:26 by Chano Perez MD) Acute bronchitis AK (actinic keratosis) Allergic rhinitis, unspecified Body mass index (bmi) 37.0-37.9, adult (07/11/19) Bronchitis CAD (coronary artery disease) Chest pain Colon cancer screening Cough Dietary counseling and surveillance (08/04/15) Essential (primary) hypertension Gastro-esophageal reflux disease without esophagitis Hyperglycemia Hypertension Leg swelling Non-ST elevation (NSTEMI) myocardial infarction EUSEBIA (obstructive sleep apnea) Other fatigue Pure hypercholesterolemia Screening for osteoporosis Skin neoplasm Sleep apnea in adult Wheezing Surgical History Surgical History (Updated 01/04/23 @ 07:06 by Maurisio Morocho MD) History of heart artery stent Family History Family History (Updated 11/30/22 @ 10:03 by Maryuri Angulo MA) Mother Patient's mother is Father Patient's father is Heart disease Heart attack Sibling Heart disease Heart attack Diabetes mellitus Grandparent , maternal grandfather Diabetes mellitus Social History Social History Smoking status: Never smoker Second hand tobacco smoke exposure: No Alcohol intake: current Drinks per week: 3 Substance use: unknown Lack of Transportation: No Lack of Food: Never True Current Housing: I Have Housing Concerned About Future Housing: No Difficulty Paying Gas/Electric Bills: No Difficulty Paying for Meds: No Currently Unemployed: No Education: Bachelor's Degree Difficulty w/ Childcare or Family Care: No Living arrangements: with family Gender identity (if verbalized by the patient): Female Spiritual care concerns: No Meds Home Medications and Allergies Home Medications Medication Instructions Recorded Confirmed Type inhalational spacing device #1 ea 11/14/19 01/04/23 Rx (Aerochamber MV spacer) diphenhydramine 25 1 tablet PO Q6H PRN Allergy 11/27/19 01/04/23 History mg-acetaminophen 500 mg tablet Symptoms (Tylenol PM Extra Strength) albuterol sulfate 90 mcg/actuation 2 puff inhalation Q4-6H PRN 02/19/20 01/04/23 Rx aerosol inhaler shortness of breath or wheezing #8.5 grams aspirin 81 mg chewable tablet 81 mg PO DAILY@0800 #30 tabs 04/10/21 01/04/23 Rx (Children's Aspirin) losartan 25 mg tablet 25 mg PO DAILY 30 days #30 tabs 04/10/21 01/04/23 Rx metoprolol succinate 25 mg 25 mg PO QAM 30 days #30 tabs 04/10/21 01/04/23 Rx tablet,extended release 24 hr (Toprol XL) furosemide 20 mg tablet (Lasix) 20 mg PO DAILY 05/22/21 01/04/23 History budesonide-formoterol HFA 160 2 puff inhalation Q12H PRN 11/25/21 01/04/23 Rx mcg-4.5 mcg/actuation aerosol shortness of breath or wheezing or inhaler (Symbicort) coughing 30 days #10.2 grams fluticasone propionate 50 2 spray intranasal DAILY PRN nasal 07/27/22 01/04/23 Rx mcg/actuation nasal congestion #15.8 mL spray,suspension alprazolam 0.5 mg tablet 0.5 mg PO HS PRN sleep #60 tabs 11/30/22 01/04/23 Rx pantoprazole 40 mg tablet,delayed 40 mg PO QAM #90 tabs 12/07/22 01/04/23 Rx release diphenoxylate-atropine 2.5 1 tablet PO QID PRN diarrhea #15 12/22/22 01/04/23 Rx mg-0.025 mg tablet (Lomotil) tabs montelukast 10 mg t
[2023-01-04 07:48] VITALS: BP 112/63; PULSE 78; RESP 20; O2SAT 94
[2023-01-04 07:58] VITALS: BP 121/75; PULSE 90; RESP 25; O2SAT 97
[2023-01-04 08:08] VITALS: BP 140/88; PULSE 86; RESP 19; O2SAT 96
== END 2023-01-04 08:13 | disposition home or self-care (01) ==
PROVIDERS: PCP Internal Medicine; Visit Provider Internal Medicine Gastroenterology
PROC: 0DJD8ZZ Inspection of Lower Intestinal Tract, Via Natural or Artificial Opening Endoscopic (ICD-10-PCS; CPT 45378; principal; 2023-01-04 07:30)
DX: Z12.11 Encounter for screening for malignant neoplasm of colon (principal); D12.5 Benign neoplasm of sigmoid colon; K64.8 Other hemorrhoids; K57.30 Diverticulosis of large intestine without perforation or abscess without bleeding; I10 Essential (primary) hypertension; I25.2 Old myocardial infarction; I25.10 Atherosclerotic heart disease of native coronary artery without angina pectoris; K21.9 Gastro-esophageal reflux disease without esophagitis; G47.33 Obstructive sleep apnea (adult) (pediatric); E78.00 Pure hypercholesterolemia, unspecified; Z95.5 Presence of coronary angioplasty implant and graft; Z79.51 Long term (current) use of inhaled steroids; Z79.82 Long term (current) use of aspirin; E66.01 Morbid (severe) obesity due to excess calories; Z68.39 Body mass index [BMI] 39.0-39.9, adult
CPT/HCPCS: 45385; 88305; J2704; J7120

== ENCOUNTER 2024-04-06 16:00 | Emergency (ER) | payer OTHER, SELFPAY ==
[2024-04-06 16:14] VITALS: BP 121/79; PULSE 96; RESP 16; TEMP 36.4; O2SAT 97
--- NOTE | 2024-04-06 16:16 | ED.URI ---
HPI - URI/Sore Throat General Chief Complaint: Upper Respiratory Infection Stated Complaint: Covid Symptoms Time Seen by Provider: 04/06/24 16:16 Source: patient and RN notes reviewed Mode of arrival: ambulatory Limitations: no limitations History of Present Illness HPI Narrative: 48-year-old female presented for complaint of headache, sore throat, body aches, sinus pressure/congestion, cough, diarrhea, fever/chills. Onset 2 days. States her tested positive for COVID 3 days ago. Denies sob, wheezing, nausea or vomiting. Not taking anything for symptoms. MD elicited complaint: cough Related Data Home Medications Medication Instructions Recorded Confirmed diphenhydramine 25 1 tablet PO Q6H PRN Allergy 11/27/19 04/06/24 mg-acetaminophen 500 mg tablet Symptoms (Tylenol PM Extra Strength) furosemide 20 mg tablet (Lasix) 20 mg PO DAILY 05/22/21 04/06/24 Allergies Allergy/AdvReac Type Severity Reaction Status Date / Time No Known Allergies Allergy Verified 04/06/24 16:22 Review of Systems Review of Systems: CONSTITUTIONAL: Endorses malaise, chills, sweats, fever EYES: Denies visual changes, redness, or discharge ENT: Reports rhinorrhea, congestion, sinus pain, otalgia, sore throat CARDIOVASCULAR: Denies chest pain, palpitations, edema RESPIRATORY: Reports cough, post nasal drainage. Denies dyspnea GASTROINTESTINAL: Denies abdominal pain, nausea, vomiting, reports diarrhea SKIN: Denies rash or itching MUSCULOSKELETAL: Endorses myalgia NEUROLOGIC: endorses headache PMFSH Past Medical History Medical History AK (actinic keratosis) Allergic rhinitis, unspecified CAD (coronary artery disease) Colon cancer screening Essential (primary) hypertension Gastro-esophageal reflux disease without esophagitis Hyperglycemia Non-ST elevation (NSTEMI) myocardial infarction EUSEBIA (obstructive sleep apnea) Other fatigue Pure hypercholesterolemia Screening for osteoporosis Skin neoplasm Surgical History Surgical History History of heart artery stent Family History Family History Mother Patient's mother is Father Patient's father is Heart disease Heart attack Sibling Heart disease Heart attack Diabetes mellitus Grandparent , maternal grandfather Diabetes mellitus Social History Social History Smoking status: Never smoker Second hand tobacco smoke exposure: No Alcohol intake: current Drinks per week: 3 Substance use: unknown Lack of Transportation: No Lack of Food: Never True Current Housing: I Have Housing Concerned About Future Housing: No Difficulty Paying Gas/Electric Bills: No Difficulty Paying for Meds: No Currently Unemployed: No Education: Bachelor's Degree Difficulty w/ Childcare or Family Care: No Living arrangements: with family Gender identity (if verbalized by the patient): Female Spiritual care concerns: No Exam Narrative: GENERAL: mildly ill-appearing, nontoxic no acute distress. EYES: PERRLA, conjunctivae clear ENT: Mucous membranes moist. TM pearly kern with dull light reflex bilaterally; no tragal tenderness. No tripod positioning, muffled voice, soft palate or pharyngeal wall bulging NECK: Supple. No lymphadenopathy CHEST: Clear to auscultation, breath sounds equal. No wheezing, rhonchi, rales, or stridor. No respiratory distress, speaks in full sentences. HEART: Regular rate and rhythm. SKIN: Warm, dry, no rash. NEURO: Alert and oriented x3. PSYCH: Normal mood and affect Course Course Emergency Course: Patient is aware of diagnosis, understands and agrees to treatment plan. Anticipatory guidance given. Patient agrees to follow-up as directed and is aware
== END 2024-04-06 16:27 | disposition home or self-care (01) ==
PROVIDERS: Emergency Provider Nurse Practitioner Family; PCP Internal Medicine
DX: U07.1 COVID-19 (principal); I25.10 Atherosclerotic heart disease of native coronary artery without angina pectoris; I10 Essential (primary) hypertension; K21.9 Gastro-esophageal reflux disease without esophagitis; I25.2 Old myocardial infarction; E78.00 Pure hypercholesterolemia, unspecified; Z85.828 Personal history of other malignant neoplasm of skin; Z95.5 Presence of coronary angioplasty implant and graft
CPT/HCPCS: 87426; 99213; G0463